=== PATIENT | female | born 1960 ===

== ENCOUNTER 2023-06-04 20:22 | Emergency (ER) | payer MEDICARE, OTHER ==
[~2023-06-04] VITALS: Ht 162.6 cm; Wt 55.0 kg
[2023-06-04] MEDS: SODIUM CHLORIDE 0.9% 1,000 ML IVB ONE ×2 (21:30)
[2023-06-04] MEDS: LORazepam 2MG/ML-1ML VIAL IV ONE (21:30)
[2023-06-04 21:50] LABS: Basophils # (auto) 0 10 ^3/uL (0-0.2); Basophils % (auto) 0.1 % (0.0-2.0); Eosinophils # (auto) 0 10 ^3/uL (0-0.8); Hemoglobin 12.8 g/dL (12.2-16.2); Lymphocytes # (auto) 1.3 10 ^3/uL (0.4-5.4); Lymphocytes % (auto) 13.3 % (10.0-50.0); Monocytes # (auto) 0.5 10 ^3/uL (0-1.3); Neutrophils # (auto) 8.3 10 ^3/uL (1.6-8.6); White Blood Cell 10.1 10^3/uL (4.4-10.8)
[2023-06-04 21:51] LABS: Hematocrit 39.8 % (36.0-46.0); Mean Corpuscular Hemoglobin 27.7 pg (28.0-32.0); Mean Corpuscular Hgb Conc. 32.2 g/dL (32.0-36.0); Monocytes % (auto) 4.6 % (0.0-12.0); Nucleated Red Blood Cells % 0.1 %; Red Blood Cells 4.63 10^6/uL (4.0-5.20); Red Cell Distribution Width 15.7 % (11.8-14.3)
[2023-06-04 22:07] LABS: INR 1.07 (0.9-1.15); Partial Thromboplastin Time 28.5 SEC (24.5-34.5); Prothrombin Time 11.2 sec (9.3-11.8)
[2023-06-04 22:09] LABS: Alanine Aminotransferase 260 U/L (7-40); Albumin 4.4 g/dL (3.2-4.8); Alkaline Phosphatase 746 U/L (46-116); Anion Gap 14 (5-15); Aspartate Aminotransferase 305 U/L (13-40); BUN/Creatinine Ratio 16.4 (10.0-20.0); Bilirubin, Total 0.8 mg/dL (0.2-1.0); Blood Urea Nitrogen 12 mg/dL (9-23); Calcium 9.7 mg/dL (8.7-10.4); Carbon Dioxide 29 mmol/L (20-30); Chloride 97 mmol/L (98-107); Glucose 145 mg/dL (74-106); Lipase 34 U/L (12-53); Potassium 3.4 mmol/L (3.5-5.1); Sodium 140 mmol/L (136-145); Total Protein 7.9 g/dL (5.7-8.2)
[2023-06-04] MEDS: METOCLOPRAMIDE HCL 5MG/ml INJ 2ml VIAL IV ONE (22:16)
[2023-06-04] MEDS: ONDANSETRON HCL 4 MG/2 ML VIAL IV ONE (22:16)
[2023-06-04] MEDS: ASPirin 81 mg TAB PO ONE (23:23)
[2023-06-05 01:08] VITALS: BP 103/65; PULSE 86; RESP 17; TEMP 97.6; O2SAT 98
[2023-06-05] MEDS ORDERED: DOCUSATE SOD 100 MG CAP PO PRN (06:15)
[2023-06-05] MEDS ORDERED: IBUPROFEN 600 MG TAB PO PRN (06:15)
[2023-06-05] MEDS ORDERED: DEXTROSE (50%) 50ML SYRG IV PRN (06:15)
[2023-06-05] MEDS ORDERED: ONDANSETRON HCL 4 MG/2 ML VIAL IV PRN (06:15)
[2023-06-05] MEDS ORDERED: MORPHINE SULFATE INJ 2 MG/ml SYRG IV PRN (06:15)
[2023-06-05] MEDS ORDERED: LORazepam 2MG/ML-1ML VIAL IV PRN (06:15)
[2023-06-05] MEDS ORDERED: HYDROcodone-ACET 5/325MG TAB PO PRN (06:15)
[2023-06-05] MEDS ORDERED: InsuLIN REG 1unit/0.01ml Soln (100units/ml) SC SCH ×2 (07:00→22:00)
[2023-06-05] MEDS ORDERED: ACCU-CHEK COMFORT CURVE STRIP VI SCH (07:00)
[2023-06-05] MEDS ORDERED: DEXTROSE (50%) 50ML SYRG IV ONE (08:00)
[2023-06-05] MEDS ORDERED: DEXTROSE 10% 1,000 ML IV ONE (08:00)
[2023-06-05] MEDS ORDERED: ASPirin 81 mg TAB PO SCH (10:00)
[2023-06-05] MEDS ORDERED: FAMOTIDINE (10MG/ML) 2ML VL IV SCH (10:00)
[2023-06-05] MEDS ORDERED: SODIUM CHLOR 0.9% PF (SALINE LOCK) 10ML VIAL/SYR IV SCH (14:00)
== END 2023-06-05 08:40 | disposition left against medical advice (07) ==
LOC: EDBD 20:22 → ER 20:22
DX: R07.89 Other chest pain (principal); E11.9 Type 2 diabetes mellitus without complications
CPT/HCPCS: 36415; 71260; 74177; 80053; 83605; 83690; 83735; 83880; 84484; 85025; 85379; 85610; 85730; 93005; 96361; 96374; 96375; 99285; J2405; J2765; J7030; Q9967

== ENCOUNTER 2023-10-30 16:58 | Inpatient (IN) | payer OTHER, MEDICARE, MEDICAID ==
[~2023-10-30] VITALS: Ht 152.4 cm; Wt 85.0 kg
[2023-10-30] MEDS: SODIUM CHLORIDE 0.9% 500 ML IVB ONE (17:55)
[2023-10-30 18:50] LABS: Basophils # (auto) 0 10 ^3/uL (0-0.2); Eosinophils # (auto) 0 10 ^3/uL (0-0.8); Eosinophils % (auto) 0.1 % (0.0-7.0); Hemoglobin 7.1 g/dL (12.2-16.2); Lymphocytes # (auto) 0.1 10 ^3/uL (0.4-5.4); Monocytes # (auto) 0.1 10 ^3/uL (0-1.3)
[2023-10-30 18:55] LABS: Hematocrit 21.4 % (36.0-46.0); Lymphocytes % (auto) 2.6 % (10.0-50.0); Mean Corpuscular Hemoglobin 29.5 pg (28.0-32.0); Mean Corpuscular Hgb Conc. 33.1 g/dL (32.0-36.0); Mean Corpuscular Volume 88.9 fL (80.0-100.0); Monocytes % (auto) 3.1 % (0.0-12.0); Neutrophils % (auto) 94.2 % (37.0-80.0); Nucleated Red Blood Cells % 0.5 %; Red Blood Cells 2.41 10^6/uL (4.0-5.20); Red Cell Distribution Width 19.9 % (11.8-14.3); White Blood Cell 3.1 10^3/uL (4.4-10.8)
[2023-10-30] MEDS: SODIUM CHLORIDE 0.9% 1,000 ML IV ONE (19:00)
[2023-10-30 19:02] LABS: Alanine Aminotransferase 16 U/L (7-40); Albumin 2.5 g/dL (3.2-4.8); Alkaline Phosphatase 218 U/L (46-116); Anion Gap 11 (5-15); Aspartate Aminotransferase 27 U/L (13-40); BUN/Creatinine Ratio 57.4 (10.0-20.0); Blood Urea Nitrogen 35 mg/dL (9-23); Calcium 7.8 mg/dL (8.7-10.4); Carbon Dioxide 31 mmol/L (20-30); Chloride 95 mmol/L (98-107); Glucose 107 mg/dL (74-106); Potassium 3.2 mmol/L (3.5-5.1); Sodium 137 mmol/L (136-145); Total Protein 4.7 g/dL (5.7-8.2)
[2023-10-30] MEDS: MORPHINE SULFATE INJ 2 MG/ml SYRG IV ONE (19:15)
[2023-10-30] MEDS ORDERED: HYDROcodone-ACET 5/325MG TAB PO PRN (21:30)
[2023-10-30] MEDS ORDERED: DOCUSATE SOD 100 MG CAP PO PRN (21:30)
[2023-10-30] MEDS ORDERED: ACETAMINOPHEN 325 MG TAB PO PRN ×2 (21:30→22:00)
[2023-10-30] MEDS ORDERED: LORazepam 0.5 MG TAB PO PRN (22:00)
[2023-10-30] MEDS ORDERED: ONDANSETRON HCL 4 MG/2 ML VIAL IV PRN (22:00)
[2023-10-30] MEDS: DOCUSATE SOD 100 MG CAP PO SCH (22:00)
[2023-10-30 22:18] LABS: Urine Bacteria FEW /hpf (None Seen); Urine Blood Negative /uL (Negative); Urine Clarity Turbid (Clear); Urine Color Orange (Yellow); Urine Hyaline Cast FEW /lpf (0 - 2); Urine Mucus FEW (None Seen); Urine Protein, UAD 1+ (Negative); Urine Specific Gravity 1.024 (1.001-1.035); Urine Urobilinogen 2 mg/dL (Negative); Urine WBC 26 /hpf (0 - 5)
[2023-10-31] MEDS: SODIUM CHLOR 0.9% PF (SALINE LOCK) 10ML VIAL/SYR IV SCH (00:16)
[2023-10-31] MEDS: ONDANSETRON HCL 4 MG/2 ML VIAL IV ONE (00:16)
[2023-10-31 07:30] VITALS: PULSE 95; RESP 13; O2SAT 99
[2023-10-31] MEDS ORDERED: ENOXAPARIN SOD 40 MG/0.4 ML SYRINGE SC SCH (10:00)
[2023-10-31 12:05] LABS: Basophils # (auto) 0 10 ^3/uL (0-0.2); Eosinophils # (auto) 0 10 ^3/uL (0-0.8); Eosinophils % (auto) 0.1 % (0.0-7.0); Hemoglobin 7.5 g/dL (12.2-16.2); Lymphocytes # (auto) 0.1 10 ^3/uL (0.4-5.4); Monocytes # (auto) 0.1 10 ^3/uL (0-1.3)
[2023-10-31 12:06] LABS: Hematocrit 22.8 % (36.0-46.0); Lymphocytes % (auto) 4.1 % (10.0-50.0); Mean Corpuscular Hemoglobin 29.3 pg (28.0-32.0); Mean Corpuscular Volume 88.9 fL (80.0-100.0); Monocytes % (auto) 3.4 % (0.0-12.0); Neutrophils # (auto) 2.6 10 ^3/uL (1.6-8.6); Neutrophils % (auto) 92.4 % (37.0-80.0); Nucleated Red Blood Cells % 0.1 %; Red Blood Cells 2.56 10^6/uL (4.0-5.20); Red Cell Distribution Width 19.8 % (11.8-14.3); White Blood Cell 2.8 10^3/uL (4.4-10.8)
[2023-10-31 12:23] LABS: Alanine Aminotransferase 17 U/L (7-40); Albumin 2.7 g/dL (3.2-4.8); Alkaline Phosphatase 232 U/L (46-116); Anion Gap 7 (5-15); Aspartate Aminotransferase 32 U/L (13-40); BUN/Creatinine Ratio 68.3 (10.0-20.0); Blood Urea Nitrogen 28 mg/dL (9-23); Calcium 8.1 mg/dL (8.7-10.4); Carbon Dioxide 35 mmol/L (20-30); Chloride 98 mmol/L (98-107); Glucose 104 mg/dL (74-106); Lipase 16 U/L (12-53); Magnesium 1.7 mg/dL (1.6-2.6); Potassium 2.9 mmol/L (3.5-5.1); Sodium 140 mmol/L (136-145)
[2023-10-31 12:24] LABS: Bilirubin, Total 1.2 mg/dL (0.2-1.0)
[2023-10-31] MEDS: MORPHINE SULFATE 4 MG/ML SYR/VIAL IV PRN (14:28)
[2023-10-31] MEDS: ONDANSETRON HCL 4 MG/2 ML VIAL IV PRN (14:28)
[2023-10-31] MEDS: ONDANSETRON HCL 4 MG/2 ML VIAL ONE (14:44)
[2023-10-31] MEDS ORDERED: CEPH250S41 PO (15:39)
[2023-10-31] MEDS: SODIUM CHLORIDE 0.9% 250 ML IV ONE (15:45)
[2023-10-31] MEDS: POTASSIUM EFFERVESENT TAB 25 MEQ PO ONE (16:31)
[2023-10-31 17:55] VITALS: BP 68/46; PULSE 104; RESP 21; TEMP 96.6; O2SAT 96
== END 2023-10-31 18:00 | disposition hospice, home (50) | DRG 640 ==
LOC: EDBD 16:58 → ER 16:58 → OVERFLOW 21:32
PROVIDERS: ADMIT Internal Medicine; ATTEND Internal Medicine Geriatric Medicine
DX: E86.0 Dehydration (principal); G93.41 Metabolic encephalopathy; C25.9 Malignant neoplasm of pancreas, unspecified; N39.0 Urinary tract infection, site not specified; R64 Cachexia; E87.6 Hypokalemia; D64.9 Anemia, unspecified; I10 Essential (primary) hypertension; Z66 Do not resuscitate; R62.7 Adult failure to thrive; Z51.5 Encounter for palliative care; Z68.36 Body mass index [BMI] 36.0-36.9, adult
CPT/HCPCS: 36415; 80053; 81001; 82140; 83690; 83735; 85025; 96360; 96361; G0378; J2405